=== PATIENT | female | born 1940 ===

== ENCOUNTER 2021-10-07 10:05 | Outpatient (CLI) | payer MEDICARE, SELFPAY ==
[2021-10-07 11:04] LABS: Albumin Level 4.1 g/dL (3.5-5.2); Calcium 9.9 mg/dL (8.5-10.5)
[2021-10-07 12:20] VITALS: BP 134/68; PULSE 68; RESP 18; TEMP 36.3; O2SAT 94
[2021-10-07] MEDS: denosumab 60 mg SDV SUBCUT (12:25)
[2021-10-07 12:40] VITALS: BP 154/82; PULSE 67; RESP 18; TEMP 36.7; O2SAT 99
== END 2021-10-07 10:06 | disposition home or self-care (01) ==
PROVIDERS: Visit Provider Nurse Practitioner
DX: M81.0 Age-related osteoporosis without current pathological fracture (principal)
CPT/HCPCS: 36415; 82040; 82310; 96372; J0897

== ENCOUNTER 2022-11-10 13:20 | Oncology outpatient (recurring) (ONCR) | payer MEDICARE, SELFPAY ==
[2022-11-10] MEDS: denosumab 60 mg SDV SUBCUT (13:40)
== END 2022-11-24 23:59 | disposition home or self-care (01) ==
PROVIDERS: PCP Family Medicine; Visit Provider Nurse Practitioner
DX: M81.0 Age-related osteoporosis without current pathological fracture (principal); Z79.899 Other long term (current) drug therapy
CPT/HCPCS: 96372; J0897